=== PATIENT | male | born 1975 | race African-American/Black ===

== ENCOUNTER 2024-07-25 13:00 | Emergency (ER) | payer OTHER ==
[~2024-07-25] VITALS: Ht 167.6 cm; Wt 80.7 kg
[2024-07-25 13:18] VITALS: TEMP 36.7; O2SAT 100
[2024-07-25 13:55] LABS: BASOPHILS % 0.3 % (0.0-2.0); EOSINOPHILS % 0.7 % (0.0-5.0); HEMATOCRIT. 43.1 % (42.0-52.0); HEMOGLOBIN. 14.1 g/dL (14.0-18.0); LYMPHOCYTES % 30.7 % (20.0-50.0); MEAN CORPUSCULAR HEMOGLOBIN 27.7 pg (28.0-32.0); MEAN CORPUSCULAR HGB CONC 32.8 g/dL (31.0-37.0); MEAN CORPUSCULAR VOLUME 84.3 fL (80.0-94.0); MEAN PLATELET VOLUME 8.8 fl (7.4-10.4); MONOCYTES % 7.7 % (2.0-8.0); NEUTROPHILS % 60.6 % (40.0-76.0); PLATELET 219 x1000/uL (130-400); RED BLOOD CELL COUNT 5.11 mill/uL (4.7-6.1); RED CELL DISTRIBUTION WIDTH 13.7 % (11.6-14.6); WHITE BLOOD COUNT 6.8 x1000/uL (4.5-11.0)
[2024-07-25 14:11] LABS: PROTHROMBIN TIME 11.1 sec (9.6-11.0)
[2024-07-25 14:12] LABS: CARBON DIOXIDE 31 mEq/L (21-32); CHLORIDE 104 mEq/L (98-107); SODIUM 140 mEq/L (136-145)
[2024-07-25 14:13] LABS: CALCIUM 10.1 mg/dL (8.7-10.4)
[2024-07-25 14:17] LABS: CREATININE 1.1 mg/dL (0.6-1.3); GLUCOSE 115 mg/dL (70-105)
[2024-07-25 14:18] LABS: UREA NITROGEN BLOOD 8 mg/dL (9-23)
[2024-07-25 14:21] LABS: TROPONIN I HIGH SENSITIVITY < 4 ng/L (3.0-53)
[2024-07-25] MEDS: METOCLOPRAMIDE HCL 10MG TABLET PO ONE (17:21)
[2024-07-25] MEDS: KETOROLAC 30MG/ML VIAL IM ONE (17:21)
[2024-07-25] MEDS: DIPHENHYDRAMINE 25MG CAPSULE PO ONE (17:22)
[2024-07-25 17:28] VITALS: BP 132/87; PULSE 91; RESP 16; O2SAT 99
== END 2024-07-25 17:29 | disposition home or self-care (01) ==
LOC: ER 13:00
DX: G43.909 Migraine, unspecified, not intractable, without status migrainosus (principal); R07.89 Other chest pain; Z98.890 Other specified postprocedural states
CPT/HCPCS: 99285; 70450; 71045; 80048; 83880; 85025; 85610; 84484; 36415; 93005; 96372; J1885; Q0163; J8597